=== PATIENT | female | born 1955 | race Caucasian/White ===

== ENCOUNTER 2017-07-17 09:30 | Emergency (ER) | payer BC ==
[2017-07-17] MEDS ORDERED: MECLIZINE HCL 25 MG TABLET PO ONE (10:31)
--- NOTE | 2017-07-17 10:32 | ER Document Report ---
Addendum entered and electronically signed by WEN REYES NP 07/17/17 10:34 : Course - Re-evaluation Re-evalutation: 07/17/17 10:34 hx TIA, seizures in the past. Headache up back of neck into head, started 3-4 days ago. - Vital Signs Vital signs: Temp Pulse Resp BP Pulse Ox 97.6 F 57 L 16 167/86 H 96 07/17/17 09:48 07/17/17 09:48 07/17/17 09:48 07/17/17 09:48 07/17/17 09:48 Original Note: ED Medical Screen (RME) - General Mode of Arrival: Wheelchair Information source: Patient TRAVEL OUTSIDE OF THE [place] IN LAST 30 DAYS: No - General Chief Complaint: Dizziness Stated Complaint: DIZZINESS,NAUSEA,HEADACHE Time Seen by Provider: 07/17/17 10:27 Notes: 61 yo hx OA, fibromyalgia, non dm, un tx htn, non hyperlipedmic, non smoker, non CAD, female started getting sick yesterday with lightheaded, dizzy (vertigo) , vomited 4 times, ears blocked (sinus burning congestion over past week). Persisted today. Told by work to see MD because of the vomiting. No chest pain or shortness of breath. Epigastric abdominal pain when she was vomiting with chest felt muscle pain into both shoulder. (WEN REYES) - Related Data Allergies/Adverse Reactions: codeine [Codeine] Allergy (Verified 06/26/14 12:37) Past Medical History Past Surgical History: Reports: Hx Section - x2, Hx Gynecologic Surgery - D&C - Immunizations Hx Diphtheria, Pertussis, Tetanus Vaccination: Yes - Vital signs Vitals: Temp Pulse Resp BP Pulse Ox 97.6 F 57 L 16 167/86 H 96 07/17/17 09:48 07/17/17 09:48 07/17/17 09:48 07/17/17 09:48 07/17/17 09:48 - Vital Signs Vital signs: Temp Pulse Resp BP Pulse Ox 97.6 F 57 L 16 167/86 H 96 07/17/17 09:48 07/17/17 09:48 07/17/17 09:48 07/17/17 09:48 07/17/17 09:48
--- NOTE | 2017-07-17 11:34 | RADIOLOGY REPORT (SQ) ---
EXAM DESCRIPTION: CT HEAD WITHOUT COMPLETED DATE/TIME: 07/17/2017 11:22 am REASON FOR STUDY: vertigo, chest upper abd pain COMPARISON: None. TECHNIQUE: Axial images acquired through the brain without intravenous contrast. Images reviewed wi th bone, brain and subdural windows. Images stored on PACS. All CT scanners at this facility use dose modulation, iterative reconstruction, and/or weight based d osing when appropriate to reduce radiation dose to as low as reasonably achievable (ALARA). [facility]: Dose Right [facility]: CareDose [facility]: Dose Right [facility]: Teradose 4D [facility]: Smart Maximum Balance [employer] RADIATION DOSE: CT Rad equipment meets quality standard of care and radiation dose reduction techniq ues were employed. CTDIvol: 64.6 mGy. DLP: 1163 mGy-cm. mGy. LIMITATIONS: None. FINDINGS: VENTRICLES: Normal size and contour. CEREBRUM: No masses. No hemorrhage. No midline shift. No evidence for acute infarction. Normal gra y/white matter differentiation. No areas of low density in the white matter. CEREBELLUM: No masses. No hemorrhage. No alteration of density. No evidence for acute infarction. EXTRAAXIAL SPACES: No fluid collections. No masses. ORBITS AND GLOBE: No intra- or extraconal masses. Normal contour of globe without masses. CALVARIUM: No fracture. PARANASAL SINUSES: No fluid or mucosal thickening. SOFT TISSUES: No mass or hematoma. OTHER: No other significant finding. IMPRESSION: NORMAL BRAIN CT WITHOUT CONTRAST. EVIDENCE OF ACUTE STROKE: NO. COMMENT: Quality ID # [id number]: Final reports with documentation of one or more dose reduction techniques (e.g., Automated exposure control, adjustment of the mA and/or kV according to patient size, use of iterative reconstruction technique) TECHNICAL DOCUMENTATION: JOB ID: [id number] [employer]- All Rights Reserved
[2017-07-17 11:38] LABS: INTERNATIONAL RATION (INR) 0.91; PARTIAL THROMBOPLASTIN TIME 28.8 SEC (23.5-35.8); PROTHROMBIN TIME 12.9 SEC (11.4-15.4)
[2017-07-17 11:39] LABS: ABSOLUTE EOSINOPHILS # (AUTO) 0.1 10^3/uL (0.0-0.6); ABSOLUTE LYMPHOCYTES (AUTO) 2.4 10^3/uL (0.5-4.7); ABSOLUTE MONOCYTES (AUTO) 0.5 10^3/uL (0.1-1.4); ABSOLUTE NEUT (AUTO) 4.1 10^3/uL (1.7-8.2); BASOPHILS % (AUTO) 0.7 % (0-2); EOSINOPHILS % (AUTO) 1.8 % (0-6); HEMATOCRIT 40.6 % (36.0-47.0); HEMOGLOBIN 13.5 g/dL (12.0-15.5); LYMPHOCYTES % (AUTO) 33.8 % (13-45); MEAN CORPUSCULAR HEMOGLOBIN 29.6 pg (27.0-33.4); MEAN CORPUSCULAR HGB CONC 33.3 g/dL (32.0-36.0); MEAN CORPUSCULAR VOLUME 89 fl (80-97); MONOCYTES % (AUTO) 6.7 % (3-13); PLATELET COUNT 281 10^3/uL (150-450); RED BLOOD COUNT 4.57 10^6/uL (3.72-5.28); RED CELL DISTRIBUTION WIDTH 13.1 % (11.5-14.0); TOTAL CELLS COUNTED % (AUTO) 100 %; WHITE BLOOD COUNT 7.2 10^3/uL (4.0-10.5)
--- NOTE | 2017-07-17 11:40 | RADIOLOGY REPORT (SQ) ---
EXAM DESCRIPTION: CHEST SINGLE VIEW COMPLETED DATE/TIME: 07/17/2017 11:29 am REASON FOR STUDY: vertigo, chest upper abd pain COMPARISON: None. EXAM PARAMETERS: NUMBER OF VIEWS: One view. TECHNIQUE: Single frontal radiographic view of the chest acquired. RADIATION DOSE: NA LIMITATIONS: None. FINDINGS: LUNGS AND PLEURA: No opacities, masses or pneumothorax. No pleural effusion. MEDIASTINUM AND HILAR STRUCTURES: No masses. Contour normal. HEART AND VASCULAR STRUCTURES: Heart normal in size. Normal vasculature. BONES: No acute findings. HARDWARE: None in the chest. OTHER: No other significant finding. IMPRESSION: NO ACUTE RADIOGRAPHIC FINDING IN THE CHEST. TECHNICAL DOCUMENTATION: JOB ID: [id number] [employer]- All Rights Reserved
--- NOTE | 2017-07-17 11:56 | EKG REPORT ---
SEVERITY:- BORDERLINE ECG - SINUS RHYTHM BORDERLINE LEFT AXIS DEVIATION CONSIDER ANTERIOR INFARCT BORDERLINE T ABNORMALITIES, LATERAL LEADS : Confirmed by: Kristy Barrios 17-Jul-2017 11:56:03
[2017-07-17 11:58] LABS: ALANINE AMINOTRANSFERASE 28 U/L (9-52); ALBUMIN 4.4 g/dL (3.5-5.0); ALKALINE PHOSPHATASE 118 U/L (38-126); ANION GAP 10 (5-19); ASPARTATE AMINO TRANSFERASE 22 U/L (14-36); BILIRUBIN,DIRECT 0.2 mg/dL (0.0-0.4); BILIRUBIN,TOTAL 0.7 mg/dL (0.2-1.3); BLOOD UREA NITROGEN 13 mg/dL (7-20); CALCIUM 10.1 mg/dL (8.4-10.2); CARBON DIOXIDE 29 mmol/L (22-30); CHLORIDE 104 mmol/L (98-107); CREATINE KINASE 111 U/L (30-135); GLUCOSE 99 mg/dL (75-110); LIPASE 95.5 U/L (23-300); POTASSIUM 4.3 mmol/L (3.6-5.0); SODIUM 143.2 mmol/L (137-145); TOTAL PROTEIN 7.4 g/dL (6.3-8.2)
[2017-07-17 12:08] LABS: CREATINE KINASE MB 1.14 ng/mL (<4.55)
[2017-07-17 12:09] LABS: TROPONIN I < 0.012 ng/mL
[2017-07-17] MEDS ORDERED: AZITHROMYCIN 250 MG TABLET PO ONE (13:45)
--- NOTE | 2017-07-17 13:46 | ER Document Report ---
ED General - General Chief Complaint: Dizziness Stated Complaint: DIZZINESS,NAUSEA,HEADACHE Time Seen by Provider: 07/17/17 10:27 Mode of Arrival: Ambulatory Information source: Patient Notes: 61-year-old female presents with multiple complaints. Patient notes that she has had nasal congestion thick nasal discharge foul smell over the past few days , patient notes that she works extensively almost daily multiple shifts a day and very hot environment and that she feels very dehydrated. Patient notes when she stands up she gets dizzy and lightheaded. TRAVEL OUTSIDE OF THE [place] IN LAST 30 DAYS: No - HPI Onset: Just prior to arrival Onset/Duration: Sudden Quality of pain: Pressure Severity: Mild Pain Level: 1 Associated symptoms: Headache, Sinus pain/drainage, Other Exacerbated by: Standing Relieved by: Denies Similar symptoms previously: No Recently seen / treated by doctor: No - Related Data Allergies/Adverse Reactions: codeine [Codeine] Allergy (Verified 06/26/14 12:37) Past Medical History - General Information source: Patient - Social History Smoking Status: Never Smoker Cigarette use (# per day): No Chew tobacco use (# tins/day): No Smoking Education Provided: No Frequency of alcohol use: None Drug Abuse: None Family History: Reviewed & Not Pertinent Patient has suicidal ideation: No Patient has homicidal ideation: No - Past Medical History Cardiac Medical History: Reports: Hx Hypertension Neurological Medical History: Reports: Hx Migraine, Hx Seizures - 1 Renal/ Medical History: Denies: Hx Peritoneal Dialysis GI Medical History: Reports: Hx Hiatal Hernia Musculoskeltal Medical History: Reports Hx Arthritis - osteoarthritis Past Surgical History: Reports: Hx Section - x2, Hx Gynecologic Surgery - D&C - Immunizations Hx Diphtheria, Pertussis, Tetanus Vaccination: Yes Review of Systems - Review of Systems Notes: REVIEW OF SYSTEMS: CONSTITUTIONAL : Denies fever, chills, or sweats. Denies recent illness. EENT: Admits to thick nasal discharge CARDIOVASCULAR: Denies chest pain. Denies palpitations or racing or irregular heart beat. Denies ankle edema. RESPIRATORY: Denies cough, cold, or chest congestion. Denies shortness of breath, difficulty breathing, or wheezing. GASTROINTESTINAL: Denies abdominal pain or distention. Denies nausea, vomiting , or diarrhea. Denies blood in vomitus, stools, or per rectum. Denies black, tarry stools. Denies constipation. GENITOURINARY: Denies difficulty urinating, painful urination, burning, frequency, blood in urine, or discharge. FEMALE GENITOURINARY: Denies vaginal bleeding, heavy or abnormal periods, irregular periods. Denies vaginal discharge or odor. MUSCULOSKELETAL: Denies back or neck pain or stiffness. Denies joint pain or swelling. SKIN: Denies rash, lesions or sores. HEMATOLOGIC : Denies easy bruising or bleeding. LYMPHATIC: Denies swollen, enlarged glands. NEUROLOGICAL: Metastases to headache pressure sinuses PSYCHIATRIC: Denies anxiety or stress. Denies depression, suicidal ideation, or homicidal ideation. ALL OTHER SYSTEMS REVIEWED AND NEGATIVE. PHYSICAL EXAMINATION: GENERAL: Well-appearing, well-nourished and in no acute distress. HEAD: Atraumatic, normocephalic. EYES: Pupils equal round and reactive to light, extraocular movements intact, conjunctiva are normal. ENT: Nares patent, oropharynx clear without exudates. Moist mucous membranes. Sinus tenderness on palpation NECK: Normal range of motion, supple without lymphadenopathy LUNGS: Breath sounds clear to auscultation bilaterally and equal. No wheezes rales or rhonchi. HEART: Regular rate and rhythm without murmurs ABDOMEN: Soft, nontender, nondistended abdomen. No guarding, no rebound. No masses appreciated. Female : deferred Musculoskeletal: Normal range of motion, no pitting or edema. No cyanosis. NEUROLOGICAL: Cranial nerves grossly intact. Normal speech, normal gait. Normal sensory, motor exams PSYCH: Normal mood, normal affect. SKIN: Warm, Dry, normal turgor, no rashes or lesions noted. Dictation was performed using Room voice recognition software Physical Exam - Vital signs Vitals: Temp Pulse Resp BP Pulse Ox 97.6 F 57 L 16 167/86 H 96 07/17/17 09:48 07/17/17 09:48 07/17/17 09:48 07/17/17 09:48 07/17/17 09:48 Course - Re-evaluation Re-evalutation: 07/17/17 14:48 Patient's lab work and imaging was quite benign, she has no signs of stroke or significant illness, she does in fact though become dizzy upon standing suddenly , I believe this is orthostatic in nature due to dehydration from working so much. Patient overall looks well and vital signs are stable therefore she is stable for discharge. I did give her off from work encouraged her to hydrate and will treat her for a sinus infection After performing a Medical Screening Examination, I estimate there is LOW risk for ACUTE CORONARY SYNDROME, PULMONARY EMBOLI, RESPIRATORY FAILURE, SEPSIS OR MENINGITIS, thus I consider the discharge disposition reasonable. I have reevaluated this patient multiple times and no significant life threatening changes are noted. The patient and I have discussed the diagnosis and risks, and we agree with discharging home with close follow-up. We also discussed returning to the Emergency Department immediately if new or worsening symptoms occur. We have discussed the symptoms which are most concerning (e.g., changing or worsening pain, trouble swallowing or breathing, neck stiffness, fever) that necessitate immediate return. - Vital Signs Vital signs: Temp Pulse Resp BP Pulse Ox 97.6 F 67 16 149/78 H 97 07/17/17 14:39 07/17/17 14:39 07/17/17 09:48 07/17/17 14:39 07/17/17 14:39 - Laboratory Result Diagrams: 07/17/17 11:14 07/17/17 11:14 Discharge - Discharge Clinical Impression: Orthostatic dizziness Sinusitis Qualifiers: Sinusitis location: frontal Chronicity: acute Recurrence: non-recurrent Qualified Code(s): J01.10 - Acute frontal sinusitis, unspecified Condition: Stable Disposition: HOME, SELF-CARE Instructions: Dizziness ([facility]), Orthostatic Hypotension ([facility]) Additional Instructions: Follow up with your physician tomorrow for further care or return to the ED IMMEDIATELY if symptoms worsen or new concerns occur. If you cannot afford to follow up with your primary care physician a list of low cost clinics have been provided at the end of your discharge papers as well. Prescriptions: Azithromycin 250 mg PO DAILY #4 tablet Forms: Return to Work
[2017-07-17 14:20] LABS: A TYPE INFLUENZA AG NEGATIVE (NEGATIVE); B INFLUENZA AG NEGATIVE (NEGATIVE)
[2017-07-17 14:40] VITALS: BP 149/78
== END 2017-07-17 14:46 | disposition home or self-care (01) ==
LOC: ER 09:30
DX: J01.10 Acute frontal sinusitis, unspecified (principal); I95.1 Orthostatic hypotension; R42 Dizziness and giddiness; R11.0 Nausea; R51 Headache; R09.81 Nasal congestion; R09.89 Other specified symptoms and signs involving the circulatory and respiratory systems
CPT/HCPCS: 36415; 70450; 71045; 80053; 82550; 82553; 83690; 84484; 85025; 85610; 85730; 87804; 93005; 93010; 99284